=== PATIENT | female | born 1990 | race Caucasian/White ===

== ENCOUNTER 2016-07-24 13:40 | Emergency (ER) | payer MEDICAID, OTHER ==
[~2016-07-24] VITALS: Ht 182.9 cm; Wt 140.2 kg
[2016-07-24 14:34] VITALS: BP 140/90
--- NOTE | 2016-07-24 16:07 | NUR ---
PT TO BED 7
--- NOTE | 2016-07-24 16:11 | NUR ---
APATIENT PRESENTS TO ED DUE TO RIGHT 5TH FINGER SMALL SKIN TEAR . 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 ER MD MADE AWARE OF PT STATUS.
[2016-07-24] MEDS ORDERED: LIDOCAINE 1% 500 MG/50 ML VIAL INJ SCH (17:00)
[2016-07-24] MEDS: oxyCODONE/APAP 5/325 MG 1 TAB TAB PO ONE (17:13)
[2016-07-24] MEDS: LIDOCAINE 1% 500 MG/50 ML VIAL INJ SCH (17:14)
--- NOTE | 2016-07-24 17:37 | NUR ---
PT RESTING, FAMILY AT BEDSIDE, VITAL SIGN OBTAINED, PT AAO, RIGHT BASE 5TH FINGER STILL WITH SWELLING.
--- NOTE | 2016-07-24 18:01 | NUR ---
dr. lr at bedside.
--- NOTE | 2016-07-24 18:09 | NUR ---
dr. lr at bedside again
--- NOTE | 2016-07-24 18:33 | NUR ---
xray at bedside
--- NOTE | 2016-07-24 18:36 | NUR ---
PT WENT TO THE BATHROOM, PT AAO, ENCOURAGED NOT TO MOVE RIGHT HAND AT THIS TIME AND PT AGREED WITH IT.
[2016-07-24 18:56] VITALS: BP 121/71
--- NOTE | 2016-07-24 18:56 | NUR ---
Patient discharged with v/s stable. Written and verbal after care instructions given and explained. Patient alert, oriented and verbalized understanding of instructions. Ambulatory with steady gait. RIGHT ARM SLING AND SPLINT IN PLACE WITH GOOD CIRCULATION.All questions addressed prior to discharge. ID band removed. Patient advised to follow up with PMD. Rx of NORCO given. Patient educated on indication of medication including possible reaction and side effects. Opportunity to ask questions provided and answered.PHONE NUMBER OF ORTHO GIVEN,
== END 2016-07-24 18:56 | disposition home or self-care (01) ==
LOC: MED 13:40
DX: S62.616A Displaced fracture of proximal phalanx of right little finger, initial encounter for closed fracture (principal); R03.0 Elevated blood-pressure reading, without diagnosis of hypertension; W23.0XXA Caught, crushed, jammed, or pinched between moving objects, initial encounter; Y93.89 Activity, other specified; Y92.89 Other specified places as the place of occurrence of the external cause; Y99.8 Other external cause status
CPT/HCPCS: 29125; 73120; 73140; 99284; J2001; Q0092

== ENCOUNTER 2016-07-28 20:19 | Emergency (ER) | payer MEDICAID ==
[~2016-07-28] VITALS: Ht 182.9 cm; Wt 140.2 kg
[2016-07-28 20:38] VITALS: BP 147/87
--- NOTE | 2016-07-29 00:29 | NUR ---
PT TAKEN TO OF
--- NOTE | 2016-07-29 00:51 | NUR ---
Dr. Haskins evaluating patient
--- NOTE | 2016-07-29 00:51 | NUR ---
26Y/F PATIENT PRESENTS TO ED WITH C/O RT, ARM PAIN X 1 DAY . PT STATES RT. ARM BROKEN LAST WEEK, ON SOFT CAST , WENT TO SEE ORTHOPEDIC, TODAY PAIN INCREASES, RUN OUT. DENIES N/V/D; SKIN IS PINK/WARM/DRY; AAOX4 WITH EVEN AND STEADY GAIT; LUNGS CLEAR BL; HR EVEN AND REGULAR; PT DENIES ANY FEVER, CP, SOB, OR COUGH AT THIS TIME; [place] [address] AT THIS TIME; VSS; ER MD MADE AWARE OF PT STATUS.
--- NOTE | 2016-07-29 01:10 | NUR ---
Patient discharged with v/s stable. Written and verbal after care instructions given and explained. Patient alert, oriented and verbalized understanding of instructions. Ambulatory with steady gait. All questions addressed prior to discharge. ID band removed. Patient advised to follow up with PMD. Rx of NORCO 5/325 MG, MOTRIN 600 MG given. Patient educated on indication of medication including possible reaction and side effects. Opportunity to ask questions provided and answered.
[2016-07-29 01:11] VITALS: BP 140/81
== END 2016-07-29 01:10 | disposition home or self-care (01) ==
LOC: MED 20:19
PROC: 2W3EX1Z Immobilization of Right Hand using Splint (ICD-10-PCS; principal; 2016-07-28)
DX: S62.616G Displaced fracture of proximal phalanx of right little finger, subsequent encounter for fracture with delayed healing (principal); R03.0 Elevated blood-pressure reading, without diagnosis of hypertension; X58.XXXD Exposure to other specified factors, subsequent encounter
CPT/HCPCS: 99283

== ENCOUNTER 2018-07-09 20:25 | Emergency (ER) | payer MEDICAID, OTHER ==
[~2018-07-09] VITALS: Ht 182.9 cm; Wt 156.5 kg
[2018-07-09 20:31] VITALS: BP 151/92
--- NOTE | 2018-07-09 21:01 | NUR ---
PATIENT PRESENTS TO ED WITH PRESENTATION OF UPPER GASTRIC PAIN, N/V, AND RUNNY STOOLS X 1 DAY. ABDOMEN IS SOFT, NON-TENDER, BS ACTIVE X ALL QUADRANTS, NO PAIN AT PALPATION. PATIENT CURRENTLY STABLE, VSS, PATIENT WAITING EVAL BY ER MD.
[2018-07-09] MEDS ORDERED: NACL 0.9% 500 ML IV ONE (21:26)
[2018-07-09] MEDS ORDERED: ONDANSETRON 4 MG/2 ML VIAL IVP ONE (21:30)
[2018-07-09] MEDS ORDERED: KETOROLAC 30 MG/ML VIAL IVP ONE (21:30)
[2018-07-09 22:13] LABS: BASOPHILS % (AUTO) 0.4 % (0.0-2.0); EOSINOPHILS # (AUTO) 0.2 K/uL (0-0.4); EOSINOPHILS % (AUTO) 1.7 % (0.0-4.0); HEMATOCRIT 40.3 % (36-48); HEMOGLOBIN 13.6 g/dL (12.0-16.0); LYMPHOCYTES % (AUTO) 18.1 % (20.5-51.1); MEAN CORPUSCULAR HEMOGLOBIN 29 pg (27-31); MEAN CORPUSCULAR HGB CONC 34 g/dL (33-37); MEAN CORPUSCULAR VOLUME 85.6 fL (80-94); MONOCYTES # (AUTO) 0.8 K/uL (0.8-1.0); MONOCYTES % (AUTO) 7.4 % (1.7-9.3); NEUTROPHILS # (AUTO) 7.9 K/uL (1.8-7.7); NEUTROPHILS % (AUTO) 72.4 % (42.2-75.2); PLATELET COUNT (AUTO) 373 K/uL (140-450); RED BLOOD CELL COUNT(AUTO) 4.71 MIL/uL (4.20-5.40); RED CELL DISTRIBUTION WIDTH 14.5 % (11.6-13.7); WHITE BLOOD COUNT (AUTO) 10.9 K/uL (4.8-10.8)
--- NOTE | 2018-07-09 22:20 | NUR ---
PAIN REDUCED TO ACCEPTABLE LEVEL FOR PT. 4/10 AT THIS TIME.
[2018-07-09 22:32] LABS: ALBUMIN 3.7 g/dL (3.4-5.0); ANION GAP 17.2 (8-16); CARBON DIOXIDE 23.2 mmol/L (21-32); CREATININE 0.7 mg/dL (0.6-1.3); POTASSIUM 3.4 mmol/L (3.5-5.1); TOTAL BILIRUBIN 0.7 mg/dL (0.0-1.0)
[2018-07-09 22:46] VITALS: BP 148/81
--- NOTE | 2018-07-09 22:46 | NUR ---
Patient discharged with v/s stable. Written and verbal after care instructions given and explained. Patient alert, oriented and verbalized understanding of instructions. Ambulatory with steady gait. All questions addressed prior to discharge. ID band removed. Patient advised to follow up with PMD. Rx of PROTONIX, MAALOX given. Patient educated on indication of medication including possible reaction and side effects. Opportunity to ask questions provided and answered.
== END 2018-07-09 22:46 | disposition home or self-care (01) ==
LOC: MED 20:25
DX: K29.70 Gastritis, unspecified, without bleeding (principal)
CPT/HCPCS: 36415; 76705; 80053; 83690; 85025; 96361; 96374; 96375; 99284; J1885; J2405; J7030; Q0092